=== PATIENT | male | born 1980 | race Two or more races ===

== ENCOUNTER 2024-06-30 22:05 | Emergency (ER) | payer MEDICAID, SELFPAY ==
[2024-06-30 22:06] VITALS: BMI 29.6
[2024-06-30 22:22] VITALS: BP 127/84; PULSE 120; RESP 18; TEMP 37.2; O2SAT 95
--- NOTE | 2024-06-30 22:37 | XR_ITS ---
Examination: Abdomen sonogram, Limited Date and time of exam: June 30, 2024 1130 hrs. Indications: Right upper abdominal pain beginning 4 days ago Technique: Real-time dela cruz scale transabdominal sonographic images of the upper abdomen obtained. Findings: Contracted gallbladder Cholelithiasis, normal gallbladder wall Normal common bile duct Pancreatic head 2.9 cm Liver 15.6 cm, focal fatty spurring Normal hepatopedal portal venous flow Patent IVC Impression: Repeat the gallbladder portion of the study with fasting
--- NOTE | 2024-06-30 22:45 | PD.EDRME ---
Rapid Medical Screening Exam RME Arrival date/time: 06/30/24 22:05 This is a 43-year-old male that comes in with complaints of abdominal pain mostly on the right side. Patient states the pains been going on for the past 2 days. Patient also states he is nauseous and has not had much of an appetite. Patient reports pain with urination. Patient reports that head injury that happened a couple years ago and is currently seeing a neurologist. I have greeted and performed a focused initial assessment of this patient. Initial appropriate labs ordered at this time. A comprehensive ED assessment and evaluation of the patient and analysis of all test and completion of medical decision making process will be conducted by additional ED provider. Chief Complaint: Abdominal Pain Time Seen by Provider: 06/30/24 22:07 Vital signs: Vital Signs Temperature 98.9 F 06/30/24 22:22 Pulse Rate 120 H 06/30/24 22:22 Respiratory Rate 18 06/30/24 22:22 Blood Pressure 127/84 06/30/24 22:22 Pulse Oximetry (%) 95 06/30/24 22:22 Oxygen Delivery Method Room Air 06/30/24 22:22
[2024-06-30 22:52] LABS: Basophils # (Auto) 0.1 Thou/mm3 (0.0-0.2); Basophils % (Auto) 0 % (0-2.5); Eosinophils # (Auto) 0.3 Thou/mm3 (0.0-0.5); Eosinophils % (Auto) 2 % (0-10); Hematocrit 47.5 % (41.0-53.0); Hemoglobin 16.7 g/dL (13.5-16.0); Immature Granulocytes % (Auto) 0 % (0-0); Immature Granulocytes Auto 0.03 Thou/mm3 (0.00-0.00); Lymphocytes # (Auto) 5.8 Thou/mm3 (1.0-4.8); Lymphocytes % (Auto) 39 % (10-50); Mean Corpuscular HGB Conc 35.2 g/dl (31.0-37.0); Mean Corpuscular Hemoglobin 32.1 pg (25.0-35.0); Mean Corpuscular Volume 91 fL (80-100); Monocytes # (Auto) 1.5 Thou/mm3 (0.0-0.8); Monocytes % (Auto) 10 % (0-12); Neutrophils # (Auto) 7.2 Thou/mm3 (1.8-7.7); Neutrophils % (Auto) 48 % (37-80); Nucleated Red Blood Cell % 0 /100 WBC (0); Platelet Count 376 Thou/mm3 (140-440); RDW Standard Deviation 40.3 fL (35.1-43.9); Red Blood Count 5.21 Miln/mm3 (4.50-5.90)
[2024-06-30 22:57] LABS: Collection Type, Urine Voided; Squamous Epithelial Cell,Urine 0 /hpf (0-5)
[2024-06-30 23:00] LABS: Bilirubin,Urine Negative (Negative); Blood,Urine Negative (Negative); Clarity,Urine Clear (Clear/Hazy); Color,Urine Yellow (Lt Yel-Yel); Culture Indicated,Urine Not Indicated; Glucose, Urine Negative (Negative); Ketones,Urine Negative (Negative); Leukocyte Esterase,Urine Negative (Negative); Nitrite,Urine Negative (Negative); Protein,Urine Negative (Neg - Trace); RBC,Urine 2 /hpf (0-3); Specific Gravity,Urine 1.012 (1.001-1.035); Urobilinogen,Urine Negative mg/dL (0.0-1.0); WBC,Urine 1 /hpf (0-5)
[2024-06-30 23:07] LABS: Amphetamine/Methamp Scrn,U Negative (Negative); Barbiturate Screen,Urine Negative (Negative); Benzodiazepines Screen,Urine Negative (Negative); Benzoylecgonine Screen, Ur Negative (Negative); Fentanyl Screen,Urine Negative (Negative); Opiate Screen,Urine Negative (Negative); THC Screen,Urine Negative (Negative)
[2024-06-30 23:14] LABS: Alanine Aminotransferase 105 U/L (10-49); Albumin, Serum 4.9 gm/dL (3.5-5.0); Albumin/Globulin Ratio 1.9 (1.2-2.2); Alkaline Phosphatase 58 U/L (46-116); Anion Gap 11 (7-16); Aspartate Amino Transferase 38 U/L (0-34); BUN/Creatinine Ratio 7 Ratio (12-20); Bilirubin,Total 0.7 mg/dL (0.3-1.2); Blood Urea Nitrogen 6 mg/dL (9-23); Calcium 10.2 mg/dL (8.3-10.6); Calcium (Corrected) 10.2 mg/dL (8.5-10.1); Carbon Dioxide 25.5 mMol/L (20.0-31.0); Chloride 109 mMol/L (98-107); Creatinine (Component) 0.9 mg/dL (0.6-1.3); Estimated Creatinine Clearance 104.6 mL/min (>60); Globulin 2.6 gm/dL (2.3-3.5); Glucose 114 mg/dL (74-106); Lipase 61 U/L (12-53); Osmolality,Calculated 287 (275-295); Potassium 3.8 mMol/L (3.4-5.1); Sodium 145 mMol/L (136-145); Total Protein 7.5 gm/dL (5.7-8.2); eGFR > 60 See Note
[2024-07-01 00:41] VITALS: BP 136/81; RESP 20; TEMP 36.9; O2SAT 97
--- NOTE | 2024-07-01 00:47 | EDNOTE_ITS ---
ED Abdominal Pain RME/HPI General Chief Complaint: Abdominal Pain Stated complaint: RIGHT ABDOMINAL AND CHEST PAIN Time seen by provider: 06/30/24 22:07 Arrival date/time: 06/30/24 22:05 This is a 43-year-old male that comes in with complaints of abdominal pain mostly on the right side. Patient states the pains been going on for the past 2 days. Patient also states he is nauseous and has not had much of an appetite. Patient reports pain with urination. Patient reports that head injury that happened a couple years ago and is currently seeing a neurologist. RME / HPI RME / HPI narrative: 06/30/24 22:05 This is a 43-year-old male that comes in with complaints of abdominal pain mostly on the right side. Patient states the pains been going on for the past 2 days. Patient also states he is nauseous and has not had much of an appetite. Patient reports pain with urination. Patient reports that head injury that happened a couple years ago and is currently seeing a neurologist. I have greeted and performed a focused initial assessment of this patient. Initial appropriate labs ordered at this time. A comprehensive ED assessment and evaluation of the patient and analysis of all test and completion of medical decision making process will be conducted by additional ED provider. Related Data Previous Rx's ?Medication ?Instructions ?Recorded ibuprofen 800 mg tablet 800 mg PO TID PRN pain #30 t abs 08/21/18 methocarbamol 750 mg tablet 750 mg PO TID PRN muscle p ain #20 08/21/18 (Robaxin-750) tabs cephalexin 500 mg tablet 500 mg PO BID #28 tabs 12/24 ibuprofen 800 mg tablet 800 mg PO Q6H PRN pain #30 t abs 12/24/18 oxycodone-acetaminophen 5 mg-325 1 tab PO Q6H PRN pain #10 tabs 12/24/18 mg tablet (Percocet) ibuprofen 800 mg tablet 800 mg PO Q6H PRN pain #14 t abs 07/01/24 Allergies Allergy/AdvReac Type Severity Reaction Status Date / Time No Known Allergies Allergy Verified 08/20/18 22:23 Review of Systems Review of Systems Systems Reviewed: All systems reviewed, normal except as documented Past Medical History Surgical History OTHER SURGICAL HX: denies psh Social History SMOKING STATUS: Current every day smoker Travel History EBOLA RISK: No Past Medical History Comments PMH COMMENT: denies pmh ED Exam General General appearance: Present alert and in no apparent distress Head Head exam: Present atraumatic Eye Eye exam: Present normal appearance, PERRL and EOMI ENT ENT exam: Present normal exam, normal oropharynx and mucous membranes moist Neck Neck exam: Present normal inspection, full ROM and trachea midline Chest Chest inspection: Present normal inspection and symmetric chest wall rise Respiratory Respiratory exam: Present normal lung sounds bilaterally Cardiovascular Cardiovascular exam: Present regular rate Abdominal Exam Abdominal exam: Present soft and other (No pain to light palpation) Extremities Exam Extremities exam: Present normal inspection and full ROM Back Exam Back exam: Present normal inspection and full ROM Neurological Exam Neurological exam: Present alert, oriented X3 and CN II-XII intact Psychiatric Psychiatric exam: Present normal affect and normal mood Skin Skin exam: Present warm, dry, intact and normal color Course Quality Measures none Orders Category Date Time Status US abdomen limited Stat Exams 06/30/24 22:37 Completed CBC Stat Lab 06/30/24 22:46 Completed Comprehensive Metabolic Panel Stat Lab 06/30/24 22:46 Completed Drug Screen,Urine Stat Lab 06/30/24 22:48 Completed Lipase Stat Lab 06/30/24 22:46 Completed Urinalysis, C/S if Indicated Stat Lab 06/30/24 22:48 Completed Acetaminophen Tab [Tylenol ES Tab] Med 07/01/24 00:50 Discontinued 1,000 mg PO X1 ONE Ketorolac Inj [Toradol Inj] Med 07/01/24 00:49 Discontinued 60 mg IM X1 ONE LORazepam [Ativan] Med 07/01/24 00:49 Discontinued 1 mg PO X1 ONE Ondansetron Odt [Zofran Odt] Med 07/01/24 00:49 Discontinued 4 mg PO X1 ONE Vital Signs Vital signs: Vital Signs Temperature 98.9 F 06/30/24 22:22 Pulse Rate 120 H 06/30/24 22:22 Respiratory Rate 18 06/30/24 22:22 Blood Pressure 127/84 06/30/24 22:22 Pulse Oximetry (%) 95 06/30/24 22:22 Oxygen Delivery Method Room Air 06/30/24 22:22 Abdominal Pain MDM MDM Narrative MDM Narrative:: Reviewed labs with patient. White count is 15, BMP shows a slightly elevated AST and ALT AST is 38 and ALT is 105, alk phos is 58 T. bili 0.7 lipase is 61, urine unremarkable Us abdomen shows: Findings: Contracted gallbladder Cholelithiasis, normal gallbladder wall Normal common bile duct Pancreatic head 2.9 cm Liver 15.6 cm, focal fatty spurring Normal hepatopedal portal venous flow Patent IVC Impression: Repeat the gallbladder portion of the study with fasting Patient tachycardic and very anxious. Patient states that he ran out of his Ativan and cannot get a refill because his doctor wanted to see patient in person. Patient requesting dose of Ativan for anxiety. I spoke to patient at length and told him that he would need to have a follow-up with his primary prov ider in 1 to 2 days or come back to the emergency room if symptoms change or worsen. Patient comfortable plan of care. Patient was given Toradol, Tylenol, Zofran, and 1 dose of lorazepam. Patient data External records reviewed:: [facility] previous records Clinical information provided by:: patient Social determinants that could affect healthcare access:: none Patient has the following chronic illnesses:: see hpi How is presenting disease/condition affected by chronic disease/condition?: no chronic disease Evaluation data The following diagnostics were reviewed and interpreted by me:: lab results and radiology exam(s) Lab and/or radiology exams considered but not ordered:: see hpi Interpretation Summary: See note Medications / Prescriptions Medications or Prescriptions considered but not ordered:: None Medication administrations:: Medication Administration History Discontinued Medications Acetaminophen (Acetaminophen 500 Mg Tablet) 1,000 mg PO X1 ONE Stop: 07/01/24 00:51 Last Admin: 07/01/24 01:05 Dose: 1,000 mg Documented By: EF Ketorolac Tromethamine (Ketorolac Inj 60 Mg/2 Ml Vial) 60 mg IM X1 ONE Stop: 07/01/24 00:50 Last Admin: 07/01/24 01:04 Dose: 60 mg Documented By: EF Lorazepam (Lorazepam 0.5 Mg Tablet) 1 mg PO X1 ONE Stop: 07/01/24 00:50 Last Admin: 07/01/24 01:05 Dose: 1 mg Documented By: EF Ondansetron HCl (Ondansetron Odt 4 Mg Tabrap) 4 mg PO X1 ONE; Protocol Stop: 07/01/24 00:50 Last Admin: 07/01/24 01:05 Dose: 4 mg Documented By: EF See MAR Consultations Consultation(s) initiated? (list below): No Diagnosis Differential diagnosis abdominal pain: abdominal pain, acute appendicitis, calculus of kidney and other (anxiety ) Most likely diagnosis given after review of the tests above:: anxiety Admission Indicated Admission indicated?: not indicated Admission Request Was there a request for admission?: No Disposition Plan Disposition Plan: Discharge Discharge Attestation Discharge Attestation: The patient and all family members were given an opportunity to ask questions and understood the discharge instructions. Discharge instructions specifically effects, indications for sooner follow up or return to the emergency department, and the expected course of current diagnosis. Patient condition: Stable Discharge Plan Plan Patient Disposition: HOME (Self Care) Patient condition on transfer: Stable Prescriptions/Referrals Prescriptions/Med Rec: New ibuprofen 800 mg tablet 800 mg PO Q6H PRN (Reason: pain) Qty: 14 0RF No Action ibuprofen 800 mg tablet 800 mg PO TID PRN (Reason: pain) Qty: 30 0RF methocarbamol [Robaxin-750] 750 mg tablet 750 mg PO TID PRN (Reason: muscle pain) Qty: 20 0RF cephalexin 500 mg tablet 500 mg PO BID Qty: 28 0RF ibuprofen 800 mg tablet 800 mg PO Q6H PRN (Reason: pain) Qty: 30 0RF oxycodone-acetaminophen [Percocet] 5-325 mg tablet 1 tab PO Q6H MDD 4 PRN (Reason: pain) Qty: 10 0RF Referrals: Larry He MD [Primary Care Provider] - In 1 week Problem List Clinical Impression: Anxiety, Abdominal pain, Leukocytosis, Elevated liver enzymes Patient/Caregiver Discharge Instructions Discharge Activity: activity as tolerated Education Materials: Abdominal Pain, ED Anxiety Reaction Additional Instructions: Follow up with primary provider in 1-2 days. Come back to ED if symptoms change or worsen Print Language: Jamaican Stand Alone Forms: Kemi Award Info., Patient Portal Info Letter PA/TRAFFIC WORKER Supervising Physician PA/TRAFFIC WORKER Supervising Physician: hesham
[2024-07-01] MEDS: KETOROLAC INJ 60 MG/2 ML VIAL IM (01:04)
[2024-07-01] MEDS: LORazepam 0.5 MG TABLET 1 MG PO (01:05)
[2024-07-01] MEDS: ACETAMINOPHEN 500 MG TABLET 1000 MG PO (01:05)
[2024-07-01] MEDS: ONDANSETRON ODT 4 MG TABRAP PO (01:05)
[2024-07-01 01:17] VITALS: PULSE 105; RESP 18; O2SAT 98
== END 2024-07-01 01:23 | disposition home or self-care (01) ==
PROVIDERS: Nurse Practitioner Family; Emergency Provider Emergency Medicine; PCP Family Medicine
DX: R10.9 Unspecified abdominal pain (principal); F41.9 Anxiety disorder, unspecified; D72.829 Elevated white blood cell count, unspecified; R74.8 Abnormal levels of other serum enzymes
CPT/HCPCS: 36415; 76705; 80053; 80307; 81001; 83690; 85025; 96372; 99284; J1885; Q0162; A9270

== ENCOUNTER 2024-12-26 10:00 | Day surgery (SDC) | payer MEDICAID, SELFPAY ==
[2024-12-24 07:05] VITALS: BMI 30.7
[2024-12-24 09:02] LABS: Basophils # (Auto) 0.0 Thou/mm3 (0.0-0.2); Basophils % (Auto) 0 % (0-2.5); Eosinophils # (Auto) 0.2 Thou/mm3 (0.0-0.5); Eosinophils % (Auto) 2 % (0-10); Hematocrit 47.3 % (41.0-53.0); Hemoglobin 16.5 g/dL (13.5-16.0); Immature Granulocytes Auto 0.01 Thou/mm3 (0.00-0.00); Lymphocytes # (Auto) 4.6 Thou/mm3 (1.0-4.8); Lymphocytes % (Auto) 47 % (10-50); Mean Corpuscular HGB Conc 34.9 g/dl (31.0-37.0); Mean Corpuscular Hemoglobin 33.0 pg (25.0-35.0); Mean Corpuscular Volume 95 fL (80-100); Monocytes # (Auto) 0.9 Thou/mm3 (0.0-0.8); Monocytes % (Auto) 9 % (0-12); Neutrophils # (Auto) 4.1 Thou/mm3 (1.8-7.7); Neutrophils % (Auto) 42 % (37-80); Nucleated Red Blood Cell # 0.00 Thou/mm3 (0.00-0.00); Nucleated Red Blood Cell % 0 /100 WBC (0); Platelet Count 304 Thou/mm3 (140-440); RDW Standard Deviation 42.9 fL (35.1-43.9); Red Blood Count 5.00 Miln/mm3 (4.50-5.90); White Blood Count 9.9 Thou/mm3 (3.8-10.6)
[2024-12-24 09:20] LABS: INR 1.0 (0.9-1.3); Prothrombin Time 10.6 Seconds (9.0-12.2)
[2024-12-24 09:21] LABS: Alanine Aminotransferase 29 U/L (10-49); Albumin, Serum 4.6 gm/dL (3.5-5.0); Albumin/Globulin Ratio 2.0 (1.2-2.2); Alkaline Phosphatase 53 U/L (46-116); Anion Gap 13 (7-16); Aspartate Amino Transferase 22 U/L (0-34); BUN/Creatinine Ratio 12 Ratio (12-20); Bilirubin,Total 0.5 mg/dL (0.3-1.2); Blood Urea Nitrogen 11 mg/dL (9-23); Calcium 9.9 mg/dL (8.3-10.6); Calcium (Corrected) 9.9 mg/dL (8.5-10.1); Carbon Dioxide 24.1 mMol/L (20.0-31.0); Chloride 106 mMol/L (98-107); Creatinine (Component) 0.9 mg/dL (0.6-1.3); Estimated Creatinine Clearance 94.6 mL/min (>60); Globulin 2.3 gm/dL (2.3-3.5); Glucose 104 mg/dL (74-106); Osmolality,Calculated 284 (275-295); Potassium 3.7 mMol/L (3.4-5.1); Sodium 143 mMol/L (136-145); Total Protein 6.9 gm/dL (5.7-8.2); eGFR > 60 See Note
--- NOTE | 2024-12-25 15:18 | SUR.PREOP ---
Pt notified to come in at 1030 tomorrow for surgery.
[2024-12-26] VITALS (8 sets, daily range): BP systolic 120–151; BP diastolic 82–93; PULSE 57–84; RESP 12–17; TEMP 36.1–36.8; O2SAT 96–100; BMI 29.5
[2024-12-26] MEDS: RINGERS LACTATED 1000 ML 1,000 ML 20 ML IV (10:40)
--- NOTE | 2024-12-26 11:44 | SUR.PHASEI ---
1144: Pt. AAOx4, vitals stable, breathing unlabored, no complaint of pain or nausea, x4 dermabond sites to ABD CDI, no active bleed noted, report received from Jesus BORREGO and Carlos GUTIERREZ.
--- NOTE | 2024-12-26 11:48 | PD.SUROPNT ---
Date of Procedure 12/26/24 Pre Op Diagnosis Symptomatic cholelithiasis Post Op Diagnosis Cholelithiasis with cholecystitis Procedure Laparoscopic cholecystectomy Findings Moderately distended gallbladder with small gallstones and chronic cholecystitis Procedure Description Patient was brought into the operating room in supine position. After administration of general endotracheal anesthesia abdomen was prepped and draped in standard surgical manner. A Veress needle was inserted through the umbilicus and pneumoperitoneum was obtained up to 15 mmHg. The Veress needle was then removed, a 5 mm infraumbilical incision was made and the 5mm trocar was inserted. Laparoscopic camera was placed. Under direct visualization a laparoscopic camera a 10 mm trocar was placed in subxiphoid and two 5 mm trocars placed in right upper quadrant. The gallbladder was identified and was noted to be moderately distended with small gallstones and chronic cholecystitis. It was retracted cephalad and laterally. Dissection started near the infundibulum of gallbladder where cystic duct and gallbladder junction clearly identified. The cystic duct was circumferentially dissected off the peritoneum and surrounding inflammatory tissue. The critical view of safety was clearly demonstrated. Cystic duct was then divided between 2 endoclips proximally and one distally. The cystic artery was similarly dissected and divided. The gallbladder was then from the liver bed using electrocautery. The gallbladder was then placed inside an Endo Catch and removed from the abdomen utilizing subxiphoid trocar site. The area was copiously and thoroughly washed and irrigated, all the fluid was suctioned and the suction fluid returned clear. Hemostasis achieved using electrocautery. Endoclips noted be in place and intact without any bleeding or any leakage. Hemostasis was adequate and satisfactory. The subxiphoid trocar sites fascial defect was closed with 0 Vicryl using Endo Closure device. Instruments and trocars removed, pneumoperitoneum was evacuated and the incisions closed with 4-0 Monocryl in subcuticular fashion. Instrument needle and sponge counts were all reported to be correct X2. Patient tolerated the procedure well, was extubated, breathing spontaneously and without difficulty and was transferred to postanesthesia care in stable condition. Anesthesia GETA and local Pathology / specimen Other (Gallbladder and contents) Estimated Blood Loss 10 Condition Stable Disposition PACU Surgeon Isiah Duncan MD Surgical Staff Operation Date: 12/26/24 12:30 Case Staff PLUMBER MAINTENANCE: Darrius Jerome RN First Assistant: Hillary Little
[2024-12-26] MEDS: ONDANSETRON INJ 2 MG/ML INJ 2 ML 4 MG IVP (11:51)
[2024-12-26] MEDS: HYDROmorphone INJ 2 MG/ML VIAL 0.4 MG IVP ×2 (11:51→12:01)
--- NOTE | 2024-12-26 12:10 | SUR.PHASEI ---
1210: Pt. AAOx4, vitals stable, breathing unlabored, complaint of pain, x4 dermabond sites to ABD CDI, no active bleed noted, pt. sitting upright sipping on 7up, report given to Jaci BORREGO to resume care of pt.
[2024-12-26] MEDS: fentaNYL CIT INJ 50 mCg/ML AMP 2ML 25 MCG IVP (12:18)
--- NOTE | 2024-12-26 12:40 | SUR.PHASEII ---
Pt. meets criteria for discharge, VSS, no c/o pain or nausea at this, lap sites to abd. CDI, IV discontinued without complications. Provided discharge instructions to pt. and pt.'s with use of market research assistant services, verbalized understanding. Pt. escorted to vehicle via w/c with all of belongings by staff.
== END 2024-12-26 12:40 | disposition home or self-care (01) ==
PROVIDERS: PCP Family Medicine; Referring Provider Surgery; Visit Provider Surgery
PROC: 0FT44ZZ Resection of Gallbladder, Percutaneous Endoscopic Approach (ICD-10-PCS; CPT 47562; principal; 2024-12-26 12:30)
DX: K80.10 Calculus of gallbladder with chronic cholecystitis without obstruction (principal)
CPT/HCPCS: 47562; 36415; 80053; 85025; 85610; A4217; A4649; J0694; J1100; J1171; J1885; J2250; J2405; J2704; J3010; J3490; J7120